=== PATIENT | female | born 1995 | race Caucasian/White ===

== ENCOUNTER 2018-12-27 12:34 | Emergency (ER) | payer OTHER ==
[2018-12-27] MEDS ORDERED: Magnesium CITRATE* 300 ML BTL PO ONE (13:29)
--- NOTE | 2018-12-27 13:31 | ED ---
Abdominal Pain/Female - HPI Summary HPI Summary: Patient is a 23-year-old female presenting to the ED with mother. Patient has MR. History provided by mother. Mother states patient has been constipated for approximately 1 week. She tends to have very large BMs every 10 days, but recently has been complaining of pain to the abdomen due to this constipation. Mother states last bowel movement was very small and very hard in consistency on Thursday, 5 days ago. Prior to that it was several days since having a normal large bowel movement. When patient is in pain she bites her hands, which she has been doing frequently. Mother states she has been dealing with this in the past, has tried a fleets enema [id number] as well as magnesium citrate, both within the last few days with no improvement. Mother denies any nausea or vomiting, however decreased by mouth intake. Patient continues to drink okay and has had no emesis or burping. - History of Current Complaint Chief Complaint: EDConstipation Stated Complaint: FEVER, WEAK PER GRANDMA Time Seen by Provider: 12/27/18 12:46 Hx Obtained From: Patient Hx Last Menstrual Period: DOES NOT MENSTRUATE ?: No Onset/Duration: Sudden Onset Timing: Constant Severity Initially: Moderate Severity Currently: Moderate Pain Intensity: 61 Pain Scale Used: 0-10 Numeric Radiates: No Aggravating Factor(s): Nothing Alleviating Factor(s): Nothing - Risk Factors Ectopic Risk Factor: Negative Allergies/Adverse Reactions: Allergies Allergy/AdvReac Type Severity Reaction Status Date / Time lamotrigine Allergy Unknown Verified 12/27/18 12:37 Reaction Details Metompkin And Derivatives AdvReac Hives Verified 12/27/18 12:37 Home Medications: Home Medications carBAMazepine LIQ(*) [Tegretol Liq(*)] 15 ml PO BID 12/27/18 [History Confirmed 12/27/18] PMH/Surg Hx/FS Hx/Imm Hx Previously Healthy: Yes Endocrine/Hematology History: Denies: Hx Anticoagulant Therapy, Hx Diabetes, Hx Thyroid Disease, Other Endocrine/Hematological Disorders Cardiovascular History: Denies: Hx Hypertension, Hx Pacemaker/ICD, Hx Peripheral Vascular Disease, Other Cardiovascular Problems/Disorders Respiratory History: Denies: Hx Asthma, Hx Chronic Obstructive Pulmonary Disease (COPD), Other Respiratory Problems/Disorders GI History: Reports: Other GI Disorders - chronic constipation History: Denies: Hx Renal Disease, Other Problems/Disorders Musculoskeletal History: Reports: Hx Scoliosis Denies: Other Musculoskeletal History Sensory History: Denies: Other Sensory Impairments Opthamlomology History: Denies: Other Sensory Impairments Neurological History: 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, Hx Seizures, Other Neuro Impairments/Disorders - Rubistein Taybi Syndrome Denies: Hx Dementia Psychiatric History: Reports: Hx Anxiety, Hx Bipolar Disorder, Other Psychiatric Issues/Disorders - Lukas-taybi Syndrome Denies: Hx Substance Abuse - Immunization History Date of Tetanus Vaccine: current Date of Influenza Vaccine: 2013 Hx Pertussis Vaccination: No Immunizations Up to Date: Yes Infectious Disease History: No Infectious Disease History: Denies: Hx Clostridium Difficile, Hx Hepatitis, Hx Human Immunodeficiency Virus (HIV), Traveled Outside the [place] in Last 30 Days - Social History Occupation: Unemployed, Disabled Lives: With Family Alcohol Use: None Hx Substance Use: No Substance Use Type: Reports: None Smoking Status (MU): Never Smoked Tobacco Review of Systems - ROS Summary Review of Systems Summary: Level 5 caveat Constitutional: Negative Negative: Fever, Chills, Fatigue, Skin Diaphoresis Negative: Palpitations Negative: Shortness Of Breath Positive: Abdominal Pain - per mother Negative: Rash, Bruising All Other Systems Reviewed And Are Negative: Yes Physical Exam Triage Information Reviewed: Yes Vital Signs On Initial Exam: Initial Vitals Temp Pulse Resp BP Pulse Ox 99.3 F 103 18 120/83 95 12/27/18 12:36 12/27/18 12:36 12/27/18 12:36 12/27/18 12:36 12/27/18 12:36 Vital Signs Reviewed: Yes Appearance: Positive: Well-Appearing Skin: Positive: Skin Color Reflects Adequate Perfusion Head/Face: Positive: Normal Head/Face Inspection Eyes: Positive: EOMI Respiratory/Lung Sounds: Positive: Clear to Auscultation, Breath Sounds Present Cardiovascular: Positive: RRR, Pulses are Symmetrical in both Upper and Lower Extremities Musculoskeletal: Positive: Strength/ROM Intact Neurological: Positive: Speech Normal Psychiatric: Positive: Affect/Mood Appropriate Diagnostics - Vital Signs Vital Signs Temp Pulse Resp BP Pulse Ox 12/27/18 12:36 99.3 F 103 18 120/83 95 - Laboratory Lab Statement: Any lab studies that have been ordered have been reviewed, and results considered in the medical decision making process. Abdominal Pain Fem Course/Dx - Course Course Of Treatment: During this was treatment, the patient's evaluated for abdominal pain and constipation. X-ray obtained which shows no signs of obstruction, but large amount of stool in the colon. On physical examination, patient's abdomen appears distended and patient appears appears uncomfortable. Denies any recent fevers, sweats, chills, however on arrival, patient is 100.2. Mother states she does not do well with needle sticks or labs and would like to defer at this time. Mag citrate 300 mg given. Soapsuds enema given performed by , OSWALD Ramirez. Moderate amount of stool released in the commode. Patient mother okay for discharge at this time. I have encouraged a steady bowel regimen for the patient and continuing with MiraLAX this evening and tomorrow morning. - Diagnoses Differential Diagnosis: Positive: Other - Constipation, obstipation, obstruction Provider Diagnoses: Constipation Discharge - Sign-Out/Discharge Documenting (check all that apply): Patient Departure Patient Received Moderate/Deep Sedation with Procedure: No - Discharge Plan Condition: Stable Disposition: HOME Patient Education Materials: Constipation (ED), Fleet Enema (ED) Referrals: Kristan Crawford MD [Primary Care Provider] - Additional Instructions: I recommend a bowel regimen daily Continue with mag citrate or miralax This will take some time to release the rest of this stool - Billing Disposition and Condition Condition: STABLE Disposition: Home
[2018-12-27 15:40] VITALS: BP 115/83
== END 2018-12-27 15:38 | disposition home or self-care (01) ==
LOC: ED 12:34
DX: K59.00 Constipation, unspecified (principal); M41.9 Scoliosis, unspecified; Q87.2 Congenital malformation syndromes predominantly involving limbs; R62.50 Unspecified lack of expected normal physiological development in childhood; R56.9 Unspecified convulsions; F41.9 Anxiety disorder, unspecified; F31.9 Bipolar disorder, unspecified; Z88.8 Allergy status to other drugs, medicaments and biological substances
CPT/HCPCS: 74018; 99282; A9270-GY